=== PATIENT | female | born 1960 | race African-American/Black ===

== ENCOUNTER 2020-02-10 13:40 | Outpatient (CLI) | payer OTHER, SELFPAY ==
--- NOTE | ~2020-02-10 | US_ITS ---
EXAMINATION: US thyroid DATE: 02/10/2020 14:08 INDICATION: Thyroid nodule TECHNIQUE: Multiple ultrasound images of the thyroid were obtained. COMPARISON: None. FINDINGS: The right thyroid lobe measures 8.0 x 2.9 x 4.5 cm. The left thyroid lobe measures 5.2 x 2.4 x 2.9 c m. 4.4 cm wider than tall solid isoechoic nodule with smooth margins and without echogenic foci at t he superior right thyroid lobe (TI-RADS 3, mildly suspicious , FNA if >=2.5 cm, annual followup is >1 .5 cm). 4.7 cm solid wider than tall hypoechoic nodule with smooth margins and without echogenic foci at the inferior right thyroid (TI-RADS 4, moderately suspicious , FNA if >=1.5 cm, annual followup i s >1 cm). 2.6 cm predominantly solid isoechoic nodule with smooth margins and without echogenic foci at the inferior left thyroid, also TI-RADS 3. There are a few additional subcentimeter solid iso- and hypoechoic TI-RADS 3 and 4 nodules in the left thyroid lobe. Finally there is a 1 cm wider than tall solid left thyroid nodule with rim calcification TI-RADS 4. IMPRESSION: 1. Multinodular goiter with the 3 largest nodules meeting consensus criteria for biopsy. Would recomm end biopsy of at least the largest and highest grade 4.7 cm TI RADS 4 right thyroid nodule. Reviewed, dictated and finalized at [facility]. [employer] SUPER[employer]ENDENT IMPRESSION: 1. Multinodular goiter with the 3 largest nodules meeting consensus criteria fo r biopsy. Would recommend biopsy of at least the largest and highest grade 4.7 cm TI RADS 4 right thyroid nodule.
== END 2020-02-10 13:41 | disposition home or self-care (01) ==
PROVIDERS: PCP Internal Medicine Infectious Disease; Visit Provider Otolaryngology
DX: E04.2 Nontoxic multinodular goiter (principal)
CPT/HCPCS: 76536

== ENCOUNTER 2020-02-24 12:33 | Outpatient (CLI) | payer OTHER, SELFPAY ==
--- NOTE | ~2020-02-24 | US_ITS ---
EXAMINATION: US FNA w image guidance DATE: 02/24/2020 13:17 INDICATION: Nontoxic single thyroid nodule. TECHNIQUE: The procedure and its benefits, risks, and benefits were discussed with the patient. Risks specifical ly discussed included bleeding. The patient verbalized understanding of the risks and agreed to proce ed. The neck was prepped and draped in the usual sterile manner. 1% lidocaine was used for local ane sthesia. 5 passes were made with a 25G needle into the lesion. Appropriate needle location was docu mented with continuous sonographic guidance. There were no immediate complications. The patient unde rstood to call the ordering physician for results after a week and a half and verbalized that underst anding. FINDINGS: Grayscale ultrasound images demonstrate needles advanced into a 4.7 cm nodule in inferior right thyro id lobe for biopsy. IMPRESSION: 1. Ultrasound-guided fine needle aspiration of a right thyroid nodule. Reviewed, dictated and finalized at location A. [employer]
== END 2020-02-24 12:34 | disposition home or self-care (01) ==
LOC: ANHIMG 12:36
PROVIDERS: PCP Internal Medicine Infectious Disease; Visit Provider Otolaryngology
DX: E04.1 Nontoxic single thyroid nodule (principal)
CPT/HCPCS: 10005; 88173; 88305

== ENCOUNTER 2020-04-02 02:28 | Outpatient (CLI) | payer OTHER, SELFPAY ==
[2020-04-02 19:32] LABS: SARS-CoV-2 RNA PCR Negative
== END 2020-04-02 02:29 | disposition home or self-care (01) ==
LOC: ANHCOVIDDT 02:28
PROVIDERS: PCP Internal Medicine Infectious Disease; Visit Provider Otolaryngology
DX: Z01.812 Encounter for preprocedural laboratory examination (principal); Z20.822 Contact with and (suspected) exposure to COVID-19
CPT/HCPCS: 93005; C9803; U0003

== ENCOUNTER 2020-04-02 09:31 | Outpatient (CLI) | payer OTHER, SELFPAY ==
--- NOTE | 2020-04-02 09:52 | ECG_ITS ---
Measurements Intervals [place] Rate: 60 P: 70 AL: 149 QRS: 6 QRSD: 76 T: 21 QT: 439 QTc: 440 Interpretive Statements SINUS RHYTHM NORMAL ECG Electronically Signed On 04-02-2020 14:22:22 AMBULATORY CARE COORDINATOR by Brad Brown D.O.
== END 2020-04-02 09:32 | disposition home or self-care (01) ==
PROVIDERS: PCP Internal Medicine Infectious Disease; Visit Provider Anesthesiology
DX: E78.00 Pure hypercholesterolemia, unspecified (principal); Z01.818 Encounter for other preprocedural examination
CPT/HCPCS: 93005

== ENCOUNTER 2020-04-05 00:43 | Day surgery (SDC) | payer OTHER, SELFPAY ==
[2020-03-29 13:53] VITALS: BMI 61.2
[2020-04-05] VITALS (11 sets, daily range): BP systolic 120–165; BP diastolic 57–84; PULSE 69–98; RESP 14–20; TEMP 36.3–36.6; O2SAT 94–100
--- NOTE | 2020-04-05 06:13 | PM.HPGS ---
History of Present Illness History of Present Illness Consent: Risks, benefits, and alternatives have been discussed and questions answered. Patient agrees to proceed with procedure. Chief complaint: right thyroid mass Narrative: Jackie Friedman is a 60 year old female with a right thyroid nodule been biopsied benign and she should bit now for removal of this benign thyroid nodule Review of Systems Review of Systems: All systems reviewed & are unremarkable except as noted in HPI and below FORMERLY [facility], [facility] Social History Social History (Updated 01/27/20 @ 10:42 by Phyllis Warner, [facility]) Smoking packs per day: 0.50 Smoking cigarettes per day: 10.0 Years smoked: 20 Smoking pack-years: 10.00 Smoking status: Current every day smoker Tobacco type: cigarettes Second hand tobacco smoke exposure: No Alcohol intake: unknown Substance use: former Substance use type: crack/cocaine Other substance usage details: SOBER X 17 YEARS Last use: 2002 Living arrangements: alone Additional living arrangements comments: CHILDREN X 2 COME BY DAILY, GRANDCHILD LIVES WITH HER MUCH OF THE TIME Spiritual care concerns: No Meds Home Medications and Allergies Home Medications Medication Instructions Recorded Confirmed Type atorvastatin 10 mg tablet 10 mg PO HS 01/27/20 03/29/20 History cholecalciferol (vitamin D3) 10 10 mcg PO DAILY 01/27/20 03/29/20 History mcg (400 unit) capsule latanoprost 0.005 % eye drops 1 drp OPHTHALMIC (EYE) HS 01/27/20 03/29/20 History multivitamin with iron 1 tablet PO DAILY 01/27/20 03/29/20 History omeprazole 20 mg capsule,delayed 20 mg PO DAILY 01/27/20 03/29/20 History release Allergies Allergy/AdvReac Type Severity Reaction Status Date / Time No Known Allergies Allergy Verified 03/07/20 08:17 Assessment and Plan Additional Plan Plan is a right thyroidectomy
--- NOTE | 2020-04-05 06:14 | WPDHPUPDATE1 ---
History and Physical Update Update Date/Time: 04/05/20 06:14 History and Physical has been reviewed, including an updated exam of the patient. There are NO changes in the patient's condition. Risks, benefits, and alternatives have been discussed and questions answered. Patient agrees to proceed with procedure.
[2020-04-05] MEDS: ACETAMINOPHEN 500 MG TABLET 1000 MG PO (08:11)
[2020-04-05] MEDS: LACTATED RINGERS 1,000 ML 30 ML IV CONT ×2 (08:12→10:57)
--- NOTE | 2020-04-05 09:07 | WPDANESEPPF ---
Anes - Initial Pre Proc Eval Procedure: Operation Date: 04/05/20 09:45 Proposed Procedures p Right Thyroidectomy - Roberto Richardson MD Date/Time: 04/05/20 09:07 Surgeon: Roberto Richardson MD Pre Op Diagnosis: right thyroid mass Patient Data Age: 60 Gender: F Height: 5 ft 6 in Weight: 78 kg Last Vital Signs Temp 36.6 C 04/05/20 07:46 Pulse 77 04/05/20 07:46 Resp 20 04/05/20 07:46 BP 141/68 H 04/05/20 07:46 Pulse Ox 100 04/05/20 07:46 Allergies Allergy/AdvReac Type Severity Reaction Status Date / Time No Known Allergies Allergy Verified 04/05/20 08:41 Home Medications Medication Instructions Recorded Confirmed Type atorvastatin 10 mg tablet 10 mg PO HS 01/27/20 04/05/20 History cholecalciferol (vitamin D3) 10 10 mcg PO DAILY 01/27/20 04/05/20 History mcg (400 unit) capsule latanoprost 0.005 % eye drops 1 drp OPHTHALMIC (EYE) HS 01/27/20 04/05/20 History multivitamin with iron 1 tablet PO DAILY 01/27/20 04/05/20 History omeprazole 20 mg capsule,delayed 20 mg PO DAILY 01/27/20 04/05/20 History release Patient hx anesthesia problems: none Family hx anesthesia problems: none PMFSH Past Medical History Medical History (Updated 04/05/20 @ 09:08 by Nino Vogel MD) Overweight Social History Social History Smoking packs per day: 0.50 Smoking cigarettes per day: 10.0 Years smoked: 20 Smoking pack-years: 10.00 Smoking status: Current every day smoker Tobacco type: cigarettes Second hand tobacco smoke exposure: No Alcohol intake: unknown Substance use: former Substance use type: crack/cocaine Other substance usage details: SOBER X 17 YEARS Last use: 2002 Living arrangements: alone Additional living arrangements comments: CHILDREN X 2 COME BY DAILY, GRANDCHILD LIVES WITH HER MUCH OF THE TIME Spiritual care concerns: No Anes - Eval Final PreProcedure Day of Procedure 04/05/20 09:07 Patient weight: overweight Heart: regular rate and rhythm Lungs: clear to auscultation Airway: Mallampati scale class II Neurological: alert and oriented Last oral intake: >/= 8 hours ASA classification: III Emergent: no Anesthetic plan: proceed Anesthesia type and monitoring: general ETT and standard monitoring Informed Consent: The patient's anesthetic plan and its attendant risks and benefits were discussed with the patient/family/POA. Questions were solicited and answers provided to the satisfaction of the patient/family/POA.
[2020-04-05] MEDS: ceFAZolin 2 GM/D5W 50 ML 2 GM/50 ML BAG IVPB (09:37)
[2020-04-05] MEDS: LIDO 1%/EPINEPHRINE 1:100,000 50 ML VIAL INFILTRATE (09:54)
--- NOTE | 2020-04-05 10:44 | P.OP_ITS ---
Procedure Note - Detailed Date of procedure: 04/05/20 Pre-op diagnosis: right thyroid mass Post-op diagnosis: same Procedure performed: Thyroidectomy Postoperative Discharge Instructions Dr. Richardson [facility] This is an information sheet to tell you some things to expect and some things not to expect when you leave the hospital after having a Thyroidectomy surgery. Please follow any specific instructions Dr. Vyas has given you. 1. Keep the incision dry for 24 hours after surgery. Remove dressing tomorrow. After that you may get the neck wet. Pat the incision dry following a shower. Do not scrub with soap or wash cloth for the first 10 days. 2. If you have stitches to be removed, a follow up visit will be planned for removal. If your incision has been closed with dermabond (glue), this not to be removed, it will dissolve into your skin as the incision begins to heal. If steri strips are present, do not remove them until they begin to curl (usually within 7-10 days). As they begin to curl, they may be removed. Do not force steri strips off an incision. 3. Swelling at the incision site will go away in 4-6 weeks. The pink line left from the incision, will begin to fade slowly over the next 6-12 months. 4. Avoid having too much sun or sunburns while the incision is healing. Use a sunscreen or wear a scarf for protection. 5. Your incision may feel itchy while it heals. Avoid rubbing or scratching if possible. Two weeks following surgery you may begin to use a moisturizing cream along the incision. 6. Commons problems following a thyroidectomy include numbness of the skin under the chin or above the incision. This is normal and should go away in a few weeks. 7. You may feel a lump or pressure in your throat during swallowing for the next few days. This is not of concern and will go away. 8. You may feel neck stiffness, tightness, a pulling feeling, mild aching, chest discomfort, headache, ear pain or congestion. Please take the pain medication that has been prescribed to you as directed. 9. Your voice may be hoarse or weak. Pitch or tone may be changed. You may have difficulty singing. This usually goes back to normal over 6 weeks to 6 months. 10. Please notify Dr. Richardson if you have a temperature greater then 101F or continued drainage from the incision, repeated choking, difficulty breathing, severe pain or increasing in swelling and redness. 11. Do not undergo strenuous activity until your first postoperative visit to the doctor?s office and the doctor has stated that you may do so. 12. No driving a car until you are able to turn the neck side to side, which may take 1-2 weeks. No driving while under the influence of narcotic pain medicati on. 13. Follow up with Dr. Richardson in 1 week. Revised 11/05 Surgeon: Roberto Richardson MD
--- NOTE | 2020-04-05 10:46 | PM.PROC ---
Procedure Note - Detailed Date of procedure: 04/05/20 Pre-op diagnosis: right thyroid mass Post-op diagnosis: same Procedure performed: Right thyroidectomy Description of procedure: Thyroidectomy Postoperative Discharge Instructions Dr. Richardson [facility] This is an information sheet to tell you some things to expect and some things not to expect when you leave the hospital after having a Thyroidectomy surgery. Please follow any specific instructions Dr. Vyas has given you. 1. Keep the incision dry for 24 hours after surgery. Remove dressing tomorrow. After that you may get the neck wet. Pat the incision dry following a shower. Do not scrub with soap or wash cloth for the first 10 days. 2. If you have stitches to be removed, a follow up visit will be planned for removal. If your incision has been closed with dermabond (glue), this not to be removed, it will dissolve into your skin as the incision begins to heal. If steri strips are present, do not remove them until they begin to curl (usually within 7-10 days). As they begin to curl, they may be removed. Do not force steri strips off an incision. 3. Swelling at the incision site will go away in 4-6 weeks. The pink line left from the incision, will begin to fade slowly over the next 6-12 months. 4. Avoid having too much sun or sunburns while the incision is healing. Use a sunscreen or wear a scarf for protection. 5. Your incision may feel itchy while it heals. Avoid rubbing or scratching if possible. Two weeks following surgery you may begin to use a moisturizing cream along the incision. 6. Commons problems following a thyroidectomy include numbness of the skin under the chin or above the incision. This is normal and should go away in a few weeks. 7. You may feel a lump or pressure in your throat during swallowing for the next few days. This is not of concern and will go away. 8. You may feel neck stiffness, tightness, a pulling feeling, mild aching, chest discomfort, headache, ear pain or congestion. Please take the pain medication that has been prescribed to you as directed. 9. Your voice may be hoarse or weak. Pitch or tone may be changed. You may have difficulty singing. This usually goes back to normal over 6 weeks to 6 months. 10. Please notify Dr. Richardson if you have a temperature greater then 101F or continued drainage from the incision, repeated choking, difficulty breathing, severe pain or increasing in swelling and redness. 11. Do not undergo strenuous activity until your first postoperative visit to the doctor?s office and the doctor has stated that you may do so. 12. No driving a car until you are able to turn the neck side to side, which may take 1-2 weeks. No driving while under the influence of narcotic pain medication. 13. Follow up with Dr. Richardson in 1 week. Revised 11/05 Anesthesia: GLMA Surgeon: Roberto Richardson MD Estimated blood loss (mL): 10 Drains: No Packing: No Pathology: yes Complications: No immediate complications Condition: stable Disposition: PACU Findings: Large right thyroid nodule
[2020-04-05] MEDS: ONDANSETRON INJ 4 MG/2 ML VIAL IV PUSH (11:17)
[2020-04-05] MEDS: diphenhydrAMINE HCl INJ 50 MG/ML VIAL 12.5 MG IV PUSH (12:49)
[2020-04-05] MEDS: SCOPOLAMINE 1.5 MG PATCH TRANSDERM (12:51)
== END 2020-04-05 13:44 | disposition home or self-care (01) ==
PROVIDERS: PCP Internal Medicine Infectious Disease; Visit Provider Otolaryngology
PROC: (CPT 60210; principal; 2020-04-05 09:45)
DX: D34 Benign neoplasm of thyroid gland (principal); F17.210 Nicotine dependence, cigarettes, uncomplicated
CPT/HCPCS: 60210; 88307; A9270; J0330; J0690; J1100; J1170; J1200; J2250; J2370; J2405; J2704; J3010; J7120